=== PATIENT | female | born 1995 | race Asian ===

== ENCOUNTER 2019-02-23 10:49 | Emergency (ER) | payer SELFPAY ==
[~2019-02-23] VITALS: Ht 152.4 cm; Wt 55.3 kg
[2019-02-23 10:59] VITALS: BP 138/77
--- NOTE | 2019-02-23 11:09 | NUR ---
SEEN AND EXAMINED BY
--- NOTE | 2019-02-23 11:13 | NUR ---
ER PHLEB AT BEDSIDE FOR BLOOD DRAW.
[2019-02-23] MEDS ORDERED: TDAP [DIPH/PERTUSSIS/TET] 0.5 ML VIAL IM ONE ×2 (11:15→11:30)
[2019-02-23 11:31] LABS: BASOPHILS % (AUTO) 0.3 % (0.0-2.0); EOSINOPHILS % (AUTO) 0.8 % (0.0-6.0); HEMATOCRIT 40 % (33-45); HEMOGLOBIN 13.5 g/dL (11.5-14.8); LYMPHOCYTES # (AUTO) 1.4 /CMM (0.8-4.8); LYMPHOCYTES % (AUTO) 24.4 % (20.0-44.0); MEAN CORPUSCULAR HGB CONC 34 g/dl (31.0-36.0); MEAN CORPUSCULAR VOLUME 89 fL (82-100); MONOCYTES # (AUTO) 0.2 /CMM (0.1-1.30); MONOCYTES % (AUTO) 3.9 % (2.0-12.0); NEUTROPHILS % (AUTO) 70.6 % (43.0-81.0); PLATELET COUNT (AUTO) 196 /CMM (150-450); WHITE BLOOD COUNT (AUTO) 5.6 K/uL (4.3-11.0)
[2019-02-23 11:48] LABS: ALBUMIN 4.3 g/dL (3.4-5.0); BILIRUBIN,DIRECT 0.1 mg/dL (0.0-0.2); BILIRUBIN,TOTAL 0.7 mg/dL (0.2-1.0); CALCIUM, SERUM 8.8 mg/dL (8.5-10.1); CREATININE 0.8 mg/dL (0.6-1.3); POTASSIUM 3.7 mmol/L (3.5-5.1); TOTAL PROTEIN, SERUM 8.4 g/dL (6.4-8.2)
--- NOTE | 2019-02-23 12:37 | NUR ---
Patient discharged to home in stable condition. Written and verbal after care instructions given. Patient verbalizes understanding of instruction.
[2019-02-25 12:06] LABS: HIV SCRN 4G wRFX Non Reactive (Non Reactive)
== END 2019-02-23 12:38 | disposition home or self-care (01) ==
LOC: ER 10:49
DX: S69.82XA Other specified injuries of left wrist, hand and finger(s), initial encounter (principal); E03.9 Hypothyroidism, unspecified; W46.0XXA Contact with hypodermic needle, initial encounter; Y93.89 Activity, other specified; Y92.89 Other specified places as the place of occurrence of the external cause; Y99.0 Civilian activity done for income or pay
CPT/HCPCS: 36415; 80048-TC; 80074; 80076-TC; 85025-TC; 86706; 87522; 90715